=== PATIENT | female | born 2000 | race Hispanic/Latino ===

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

== ENCOUNTER 2021-01-29 16:03 | Emergency (ER) | payer MEDICAID ==
[~2021-01-29] VITALS: Ht 152.4 cm; Wt 59.0 kg
[~2021-01-29 16:03] MED LIST changes: -SODIUM CHLORIDE 0.9% 1000ML 1,000 ML IV SCH
[2021-01-29 17:28] VITALS: BP 129/71
[2021-01-29] MEDS ORDERED: DOXY-336 PO (18:18)
== END 2021-01-29 18:27 | disposition home or self-care (01) ==
LOC: EDH 16:03
DX: L03.211 Cellulitis of face (principal); F41.9 Anxiety disorder, unspecified; F32.A Depression, unspecified

== ENCOUNTER 2024-12-23 10:39 | Emergency (ER) | payer MEDICAID ==
[~2024-12-23] VITALS: Ht 152.4 cm; Wt 48.1 kg
[~2024-12-23 10:39] MED LIST changes: +DOXY-466 PO
[2024-12-23] MEDS ORDERED: LIDOCAINE HCL 1% 20 ML VIAL ONE (10:54)
--- NOTE | 2024-12-23 11:14 | ERN ---
General Chief Complaint: Other Problems Stated Complaint: UNABLE TO REMOVE PIERCINGS Time Seen by MD: 10:44 Time Seen by Midlevel: 10:44 Source: patient History of Present Illness Initial Comments 24 Year old female presents to the ER for a piercing removal to the lateral aspect of her mouth. She states they are painful with movement of her mouth so she wants them removed. She was unable to remove them at home. Allergies: Coded Allergies: No Known Drug Allergies (Verified Allergy, Unknown, 11/07/19) Home Meds Active Scripts Doxycycline Monohydrate (Doxycycline Monohydrate) 100 Mg Capsule, 1 CAP PO BID for 10 Days, #20 CAP 0 Refills Prov:SAKSHI BENSON MD 01/29/21 Reported Medications Dextroamphetamine/Amphetamine (Adderall 30 mg Tablet) 30 Mg Tablet, 30 MG PO DAILY, TAB 11/07/19 Past Medical History Past Medical History: Anxiety, Depression Past Surgical History: None Surgical History Other: RIGHT BREAST SURGERY Social History Social History: Other Female( History) LMP: Dec 08, 2024 ROS Dictation CONSTITUTIONAL: Negative except for HPI HEAD/FACE: Negative except for HPI EENT: Negative except for HPI RESPIRATORY: Negative except for HPI GASTROINTESTINAL/ABDOMINAL: Negative except for HPI GENITOURINARY: Negative except for HPI MUSCULOSKELETAL: Negative except for HPI INTEGUMENTARY: Negative except for HPI NEUROLOGICAL/PSYCH: Negative except for HPI HEMATOLOGIC/LYMPHATIC: Negative except for HPI All Systems Negative, Except as noted above. 13 point review of systems assessed and all negative except for above. Physical Exam Physical Exam Dictation PHYSICAL EXAM: GENERAL: alert,, awake oriented x 3 HEENT: EOMI, Sclera non icteric, moist mucosa NECK: Supple, no JVD, trachea midline LUNGS: Clear breath sounds bilaterally. No wheezes HEART: Regular rate and rhythm. Normal S1 and S2, without murmurs ABD: Abdomen soft, nontender. Bowel sounds present EXT: No clubbing or cyanosis, NEURO: Alert and oriented to person, follows commands There are two piercings in place to the right and left corner of the mouth MDM MDM: Differential diagnosis: Patient removal, piercing infection, abscess There are no social concerns with this patient. Prescription drug management Prescriptions will include: None Medical management and examination interpretation discussions were had by me with other qualified healthcare professionals as indicated for the patient's care. ED Course Orders Procedure Category Date Status Time Lidocaine Hcl 1% 20ml PHA 12/23/24 Complete Vial (Lidocaine Hc 10:54 Current Medications Medications (Trade) Dose Ordered Sig/Bernadette Route PRN Reason Start Time Stop Time Status Last Admin Dose Admin Lidocaine HCl (Lidocaine HCl 1% 20ml Vial) 20 ml STK-MED ONCE .ROUTE 12/23/24 10:54 12/23/24 10:54 DC Vital Signs Date Time Temp Pulse Resp B/P (MAP) Pulse Ox O2 Delivery O2 Flow Rate FiO2 12/23/24 10:44 97.9 67 16 115/61 100 Room Air* 0 21 12/23/24 10:41 97.9 67 16 115/61 100 Room Air 0 DX & DISP Disposition: Discharge Departure Impression: Primary Impression: RESIDUAL FOREIGN BODY IN SOFT TISSUE Condition: Stable Additional Instructions: Your piercings were successfully removed with no complications. Please keep area clean and dry. Return to the ER if you develop any new or worsening symptoms Referrals: FEDE AGEE MD (PCP) Time of Disposition: 11:13 I have reviewed the case, and I agree with, Diagnosis and Plan STEFANI BAIN PAC Dec 23, 2024 11:14
[2024-12-23 11:23] VITALS: BP 118/66; PULSE 70; RESP 16; TEMP 98.2; O2SAT 100
== END 2024-12-23 11:25 | disposition home or self-care (01) ==
LOC: EDH 10:39
DX: F41.9 Anxiety disorder, unspecified (principal); F32.A Depression, unspecified; M79.5 Residual foreign body in soft tissue
CPT/HCPCS: 99284